=== PATIENT | female | born 1965 | race Two or more races ===

== ENCOUNTER → 2016-05-06 | Outpatient (CLI) | payer OTHER ==
[2016-05-06 08:28] LABS: Basophils # (auto) 0 uL; Basophils % (auto) 0.8 % (0.0-2.0); Eosinophils # (auto) 0.1 uL; Eosinophils % (auto) 2.7 % (0.0-7.0); Hematocrit 37.2 % (36.0-46.0); Hemoglobin 12.7 g/dL (12.2-16.2); Lymphocytes # (auto) 1.5 uL; Mean Corpuscular Hemoglobin 31.2 pg (28.0-32.0); Mean Corpuscular Hgb Conc. 34.1 g/dL (32.0-36.0); Mean Corpuscular Volume 91.7 fL (80.0-100.0); Mean Platelet Volume 8.5 fL (7.4-10.4); Monocytes # (auto) 0.6 uL; Monocytes % (auto) 10.7 % (0.0-12.0); Neutrophils # (auto) 3.1 uL; Neutrophils % (auto) 57.8 % (37.0-80.0); Platelet Count (auto) 294 10^3/uL (140-450); Red Cell Distribution Width 13.1 % (11.6-16.0); White Blood Cell 5.3 10^3/uL (4.4-10.8)
[2016-05-06 08:53] LABS: Albumin 3.9 g/dL (3.4-5.0); BUN/Creatinine Ratio 29.7; Bilirubin, Total 0.4 mg/dL (0.2-1.0); Potassium 3.9 mmol/L (3.5-5.1); Total Protein 7.5 g/dL (6.4-8.2)
== END | disposition home or self-care (01) ==
LOC: LAB 07:55
DX: M06.9 Rheumatoid arthritis, unspecified (principal); M25.50 Pain in unspecified joint; D64.9 Anemia, unspecified; I10 Essential (primary) hypertension
CPT/HCPCS: 36415; 80053; 85025; 85652; 86141

== ENCOUNTER → 2016-10-01 | Outpatient (CLI) | payer OTHER ==
[2016-10-01 09:09] LABS: Basophils # (auto) 0 uL; Basophils % (auto) 0.5 % (0.0-2.0); CONDITION Y; Eosinophils # (auto) 0 uL; Eosinophils % (auto) 0.3 % (0.0-7.0); Hematocrit 39.9 % (36.0-46.0); Lymphocytes % (auto) 24.9 % (10.0-50.0); Mean Corpuscular Hgb Conc. 35.2 g/dL (32.0-36.0); Mean Corpuscular Volume 91.1 fL (80.0-100.0); Mean Platelet Volume 7.8 fL (7.4-10.4); Monocytes # (auto) 0.5 uL; Monocytes % (auto) 12.9 % (0.0-12.0); Neutrophils # (auto) 2.4 uL; Neutrophils % (auto) 61.4 % (37.0-80.0); Platelet Count (auto) 286 10^3/uL (140-450); Red Cell Distribution Width 12.8 % (11.6-16.0); White Blood Cell 3.9 10^3/uL (4.4-10.8)
[2016-10-01 15:59] LABS: Albumin 4.2 g/dL (3.4-5.0); BUN/Creatinine Ratio 17.2; Bilirubin, Total 0.4 mg/dL (0.2-1.0); Calcium 9.2 mg/dL (8.5-10.1); Potassium 3.9 mmol/L (3.5-5.1); Total Protein 8.3 g/dL (6.4-8.2)
== END | disposition home or self-care (01) ==
LOC: LAB 08:53
DX: M06.9 Rheumatoid arthritis, unspecified (principal); M25.50 Pain in unspecified joint; D64.9 Anemia, unspecified; I10 Essential (primary) hypertension
CPT/HCPCS: 36415; 80053; 85025; 85652; 86141

== ENCOUNTER → 2016-10-09 | Outpatient (CLI) | payer OTHER | END | disposition home or self-care (01) | LOC: LAB 09:30 | DX: M32.10 Systemic lupus erythematosus, organ or system involvement unspecified (principal); M25.50 Pain in unspecified joint | CPT/HCPCS: 84155; 84165; 86160; 86225; 86235 ==

== ENCOUNTER → 2016-12-16 | Outpatient (CLI) | payer OTHER | END | disposition home or self-care (01) | LOC: LAB 15:16 | PROVIDERS: ATTEND Urology | DX: N39.0 Urinary tract infection, site not specified (principal) | CPT/HCPCS: 87086 ==

== ENCOUNTER → 2017-06-16 | Outpatient (CLI) | payer OTHER ==
[2017-06-16 09:39] LABS: Basophils # (auto) 0.1 uL; Basophils % (auto) 1.2 % (0.0-2.0); Eosinophils # (auto) 0.1 uL; Eosinophils % (auto) 2.3 % (0.0-7.0); Hematocrit 38.9 % (36.0-46.0); Hemoglobin 13.4 g/dL (12.2-16.2); Lymphocytes # (auto) 1.6 uL; Lymphocytes % (auto) 32.6 % (10.0-50.0); Mean Corpuscular Hemoglobin 31.8 pg (28.0-32.0); Mean Corpuscular Hgb Conc. 34.5 g/dL (32.0-36.0); Mean Corpuscular Volume 92.3 fL (80.0-100.0); Monocytes # (auto) 0.3 uL; Monocytes % (auto) 6.7 % (0.0-12.0); Neutrophils # (auto) 2.8 uL; Neutrophils % (auto) 57.2 % (37.0-80.0); Nucleated Red Blood Cells % 0.1 %; Platelet Count (auto) 297 10^3/uL (140-450); Red Blood Cells 4.21 10^6/uL (4.0-5.20); Red Cell Distribution Width 12.6 % (11.8-14.3); White Blood Cell 4.9 10^3/uL (4.4-10.8)
[2017-06-16 09:46] LABS: Urine Bacteria FEW /hpf (None Seen); Urine Blood TRACE /uL (Negative); Urine Mucus FEW (None Seen); Urine Specific Gravity 1.023 (1.001-1.035); Urine WBC 15 /hpf (0 - 5)
[2017-06-16 10:41] LABS: BUN/Creatinine Ratio 18.9; Bilirubin, Total 0.4 mg/dL (0.2-1.0); Potassium 3.8 mmol/L (3.5-5.1); Total Protein 7.7 g/dL (6.4-8.2)
== END | disposition home or self-care (01) ==
LOC: LAB 09:15
PROVIDERS: ATTEND Family Medicine
DX: E55.9 Vitamin D deficiency, unspecified (principal); M79.7 Fibromyalgia; E78.4 Other hyperlipidemia; I10 Essential (primary) hypertension; M06.9 Rheumatoid arthritis, unspecified; R73.09 Other abnormal glucose; Z87.39 Personal history of other diseases of the musculoskeletal system and connective tissue
CPT/HCPCS: 36415; 80053; 80061; 81001; 82607; 83036; 84443; 85025

== ENCOUNTER 2017-08-03 18:25 | Emergency (ER) | payer OTHER ==
[~2017-08-03] VITALS: Ht 162.6 cm; Wt 81.2 kg
[2017-08-03] MEDS ORDERED: SODIUM CHLORIDE 0.9% 500 ML IVB ONE (19:12)
[2017-08-03] MEDS ORDERED: ONDANSETRON HCL 4 MG/2 ML VIAL IV ONE (19:15)
[2017-08-03] MEDS ORDERED: MORPHINE SULFATE 8mg/ml INJ SDV IV PRN (19:15)
[2017-08-03 19:39] LABS: Basophils # (auto) 0.1 uL; Eosinophils # (auto) 0.2 uL; Eosinophils % (auto) 2.6 % (0.0-7.0); Hematocrit 39.1 % (36.0-46.0); Hemoglobin 13.5 g/dL (12.2-16.2); Lymphocytes # (auto) 1.9 uL; Lymphocytes % (auto) 27.6 % (10.0-50.0); Mean Corpuscular Hemoglobin 32.3 pg (28.0-32.0); Mean Corpuscular Hgb Conc. 34.6 g/dL (32.0-36.0); Mean Corpuscular Volume 93.3 fL (80.0-100.0); Monocytes # (auto) 0.4 uL; Monocytes % (auto) 6.1 % (0.0-12.0); Neutrophils # (auto) 4.2 uL; Neutrophils % (auto) 62.7 % (37.0-80.0); Nucleated Red Blood Cells % 0.1 %; Platelet Count (auto) 327 10^3/uL (140-450); Red Blood Cells 4.19 10^6/uL (4.0-5.20); Red Cell Distribution Width 13.1 % (11.8-14.3); White Blood Cell 6.8 10^3/uL (4.4-10.8)
[2017-08-03 19:51] LABS: INR 0.92 (0.9-1.15); Partial Thromboplastin Time 26.3 sec (23.78-33.04); Prothrombin Time 9.9 sec (9.27-12.13)
[2017-08-03 20:04] LABS: Alanine Aminotransferase 55 U/L (13-56); Albumin 4.1 g/dL (3.4-5.0); Alkaline Phosphatase 127 U/L (45-117); Amylase 84 U/L (25-115); Anion Gap 8 (5-15); Aspartate Aminotransferase 25 U/L (15-37); BUN/Creatinine Ratio 14.9; Bilirubin, Total 0.3 mg/dL (0.2-1.0); Blood Urea Nitrogen 13 mg/dL (7-18); Calcium 8.9 mg/dL (8.5-10.1); Carbon Dioxide 26 mmol/L (21-32); Chloride 106 mmol/L (98-107); GFR African American 87 mL/min; GFR Non-African American 72 mL/min; Glucose 90 mg/dL (74-106); Lipase 141 U/L (73-393); Potassium 3.3 mmol/L (3.5-5.1); Sodium 140 mmol/L (136-145)
[2017-08-03 21:39] LABS: Urine Bacteria NONE SEEN /hpf (None Seen); Urine Blood Negative /uL (Negative); Urine Mucus FEW (None Seen); Urine Specific Gravity 1.015 (1.001-1.035); Urine WBC 3 /hpf (0 - 5)
[2017-08-03 22:31] VITALS: BP 111/64
== END 2017-08-03 23:30 | disposition home or self-care (01) ==
LOC: ER 18:25
DX: R10.11 Right upper quadrant pain (principal); M32.9 Systemic lupus erythematosus, unspecified; M79.7 Fibromyalgia; Z88.0 Allergy status to penicillin; Z90.49 Acquired absence of other specified parts of digestive tract
CPT/HCPCS: 36415; 71045; 76705; 80053; 81001; 82150; 83690; 84484; 85025; 85610; 85730; 93005; 94761; 96374; 96375; 99285; J2270; J2405; J7030

== ENCOUNTER → 2018-07-08 | Outpatient (CLI) | payer OTHER ==
[2018-07-08 08:39] LABS: Urine Bacteria NONE SEEN /hpf (None Seen); Urine Blood TRACE /uL (Negative); Urine Mucus FEW (None Seen); Urine Specific Gravity 1.017 (1.001-1.035); Urine WBC 24 /hpf (0 - 5)
[2018-07-08 08:43] LABS: Basophils # (auto) 0.1 uL; Basophils % (auto) 1.7 % (0.0-2.0); Eosinophils # (auto) 0.1 uL; Eosinophils % (auto) 2.5 % (0.0-7.0); Hematocrit 38.3 % (36.0-46.0); Hemoglobin 13.3 g/dL (12.2-16.2); Lymphocytes # (auto) 1.4 uL; Lymphocytes % (auto) 29.1 % (10.0-50.0); Mean Corpuscular Hemoglobin 32.4 pg (28.0-32.0); Mean Corpuscular Hgb Conc. 34.7 g/dL (32.0-36.0); Mean Corpuscular Volume 93.2 fL (80.0-100.0); Monocytes # (auto) 0.3 uL; Monocytes % (auto) 6.6 % (0.0-12.0); Neutrophils # (auto) 2.9 uL; Neutrophils % (auto) 60.1 % (37.0-80.0); Nucleated Red Blood Cells % 0.1 %; Platelet Count (auto) 272 10^3/uL (140-450); Red Blood Cells 4.11 10^6/uL (4.0-5.20); Red Cell Distribution Width 12.8 % (11.8-14.3); White Blood Cell 4.9 10^3/uL (4.4-10.8)
[2018-07-08 09:01] LABS: Potassium 3.6 mmol/L (3.5-5.1)
[2018-07-08 09:09] LABS: Albumin 3.8 g/dL (3.4-5.0); BUN/Creatinine Ratio 17.1; Bilirubin, Total 0.4 mg/dL (0.2-1.0); Calcium 8.6 mg/dL (8.5-10.1); Total Protein 7.3 g/dL (6.4-8.2)
[2018-07-08 09:14] LABS: Free T4 (Free Thyroxine) 0.85 ng/dL (0.89-1.76)
== END | disposition home or self-care (01) ==
LOC: LAB 07:58
PROVIDERS: ATTEND Internal Medicine
DX: M32.9 Systemic lupus erythematosus, unspecified (principal); M54.16 Radiculopathy, lumbar region
CPT/HCPCS: 36415; 80053; 80061; 81001; 82550; 82607; 84439; 84443; 85025; 85652; 86225; 86235; 86431

== ENCOUNTER → 2018-11-30 | Outpatient (CLI) | payer OTHER ==
[2018-11-30 11:44] LABS: Basophils # (auto) 0.1 uL; Basophils % (auto) 1.2 % (0.0-2.0); Eosinophils # (auto) 0.1 uL; Eosinophils % (auto) 1.9 % (0.0-7.0); Hematocrit 40.4 % (36.0-46.0); Hemoglobin 14.1 g/dL (12.2-16.2); Lymphocytes # (auto) 1.4 uL; Lymphocytes % (auto) 31.7 % (10.0-50.0); Mean Corpuscular Hemoglobin 32.4 pg (28.0-32.0); Mean Corpuscular Hgb Conc. 34.8 g/dL (32.0-36.0); Mean Corpuscular Volume 93.1 fL (80.0-100.0); Monocytes # (auto) 0.4 uL; Monocytes % (auto) 8.1 % (0.0-12.0); Neutrophils # (auto) 2.5 uL; Neutrophils % (auto) 57.1 % (37.0-80.0); Platelet Count (auto) 296 10^3/uL (140-450); Red Blood Cells 4.34 10^6/uL (4.0-5.20); White Blood Cell 4.3 10^3/uL (4.4-10.8)
[2018-11-30 11:50] LABS: Potassium 3.9 mmol/L (3.5-5.1)
[2018-11-30 12:01] LABS: BUN/Creatinine Ratio 14.1; Bilirubin, Total 0.4 mg/dL (0.2-1.0); Calcium 9.2 mg/dL (8.5-10.1); Total Protein 8.1 g/dL (6.4-8.2)
== END | disposition home or self-care (01) ==
LOC: LAB 10:15
PROVIDERS: ATTEND Internal Medicine
DX: M32.9 Systemic lupus erythematosus, unspecified (principal); R53.83 Other fatigue
CPT/HCPCS: 36415; 80053; 84439; 84443; 85025; 85652

== ENCOUNTER → 2019-04-05 | Outpatient (CLI) | payer OTHER ==
[2019-04-05 09:58] LABS: Basophils # (auto) 0.1 uL; Basophils % (auto) 1.2 % (0.0-2.0); Eosinophils # (auto) 0.1 uL; Eosinophils % (auto) 2.5 % (0.0-7.0); Hematocrit 38.9 % (36.0-46.0); Hemoglobin 13.5 g/dL (12.2-16.2); Lymphocytes # (auto) 1.3 uL; Lymphocytes % (auto) 27.2 % (10.0-50.0); Mean Corpuscular Hgb Conc. 34.7 g/dL (32.0-36.0); Mean Corpuscular Volume 92.1 fL (80.0-100.0); Monocytes # (auto) 0.3 uL; Monocytes % (auto) 5.7 % (0.0-12.0); Neutrophils % (auto) 63.4 % (37.0-80.0); Nucleated Red Blood Cells % 0.1 %; Platelet Count (auto) 278 10^3/uL (140-450); Red Blood Cells 4.22 10^6/uL (4.0-5.20); Red Cell Distribution Width 12.8 % (11.8-14.3); White Blood Cell 4.8 10^3/uL (4.4-10.8)
[2019-04-05 10:28] LABS: Calcium 9.4 mg/dL (8.5-10.1)
[2019-04-05 10:33] LABS: BUN/Creatinine Ratio 27.2; Bilirubin, Total 0.4 mg/dL (0.2-1.0); Total Protein 7.9 g/dL (6.4-8.2)
== END | disposition home or self-care (01) ==
LOC: LAB 09:33
PROVIDERS: ATTEND Internal Medicine
DX: M32.9 Systemic lupus erythematosus, unspecified (principal); J06.9 Acute upper respiratory infection, unspecified
CPT/HCPCS: 36415; 80053; 85025; 85652

== ENCOUNTER 2022-03-23 11:06 | Emergency (ER) | payer OTHER ==
[~2022-03-23] VITALS: Ht 167.6 cm; Wt 77.6 kg
[2022-03-23 11:41] LABS: Basophils # (auto) 0.1 10 ^3/uL (0-0.2); Basophils % (auto) 0.8 % (0.0-2.0); Eosinophils # (auto) 0 10 ^3/uL (0-0.8); Eosinophils % (auto) 0.5 % (0.0-7.0); Hematocrit 36.5 % (36.0-46.0); Hemoglobin 12.6 g/dL (12.2-16.2); Lymphocytes # (auto) 1.3 10 ^3/uL (0.4-5.4); Lymphocytes % (auto) 18.2 % (10.0-50.0); Mean Corpuscular Hemoglobin 32.1 pg (28.0-32.0); Mean Corpuscular Hgb Conc. 34.4 g/dL (32.0-36.0); Mean Corpuscular Volume 93.4 fL (80.0-100.0); Monocytes # (auto) 0.6 10 ^3/uL (0-1.3); Monocytes % (auto) 7.6 % (0.0-12.0); Neutrophils # (auto) 5.3 10 ^3/uL (1.6-8.6); Neutrophils % (auto) 72.9 % (37.0-80.0); Nucleated Red Blood Cells % 0.1 %; Red Blood Cells 3.91 10^6/uL (4.0-5.20); Red Cell Distribution Width 12.7 % (11.8-14.3); White Blood Cell 7.3 10^3/uL (4.4-10.8)
[2022-03-23] MEDS ORDERED: KETOROLAC TROMETH 60MG/2ML VIAL IM ONE (11:45)
[2022-03-23 12:05] LABS: Urine Bacteria NONE SEEN /hpf (None Seen); Urine Blood Negative /uL (Negative); Urine Mucus FEW (None Seen); Urine Specific Gravity 1.021 (1.001-1.035); Urine WBC 4 /hpf (0 - 5)
[2022-03-23 12:41] LABS: Albumin 3.8 g/dL (3.4-5.0); BUN/Creatinine Ratio 15.1; Potassium 3.7 mmol/L (3.5-5.1)
[2022-03-23 12:44] LABS: Bilirubin, Total 0.6 mg/dL (0.2-1.0); Total Protein 7.9 g/dL (6.4-8.2)
[2022-03-23] MEDS ORDERED: METR500T PO (13:55)
[2022-03-23] MEDS ORDERED: LEVO500T31 PO (13:55)
[2022-03-23 14:28] VITALS: BP 122/68
== END 2022-03-23 14:30 | disposition home or self-care (01) ==
LOC: ER 11:06
DX: K57.32 Diverticulitis of large intestine without perforation or abscess without bleeding (principal); Z88.0 Allergy status to penicillin; Z90.49 Acquired absence of other specified parts of digestive tract; Z90.89 Acquired absence of other organs; Z98.51 Tubal ligation status
CPT/HCPCS: 36415; 74176; 76830; 76856; 80053; 81001; 83690; 85025; 96372; 99284; J1885

== ENCOUNTER 2024-11-11 14:24 | Emergency (ER) | payer OTHER ==
[~2024-11-11] VITALS: Ht 167.6 cm; Wt 81.5 kg
[~2024-11-11 14:24] MED LIST: LEVO500T31 PO; METR500T PO
--- NOTE | 2024-11-11 15:06 | ED.PDOC ---
GI ASSESSMENT HPI Comments 59-year-old female presents with a chief complaint of abdominal pain x onset last night with associated body aches, nausea, fever, and diarrhea. Patient states that her abdomen pain is localized diffusely, nonradiating, nonexertional, and describes as cramping sensation. Patient states that this pain feels similar to her previous flare-up of Diverticulosis. Patient mentions that her diarrhea is watery in consistency. PMHx: HLD, Lupus, Fibromyalgia PSHx: , Tonsillectomy, Cholecystectomy, Tubal Ligation, DNC GALLO: HPI: Poor Historian. REVIEW OF SYSTEMS: CONSTITUTIONAL: Denies acute: fever, diaphoresis, chills, generalized weakness. HEAD: Denies acute: headache, photophobia Eyes: Denies acute: Double vision, vision loss, eye pain, eye discharge. EARS: Denies acute: tinnitus, hearing loss, ear discharge, ear pain, THROAT: Denies acute: sore throat, swelling, difficulty swallowing , pain with swallowing, change in voice. NECK: Denies acute: neck pain, neck swelling, stiff neck. HEART: Denies acute : chest pain, palpitations, LUNGS: Denies acute: SOB, wheezing, cough, hemoptysis ABDOMEN: Denies acute: Nausea, Vomiting, melena , hematemesis, hematochezia SKIN: Denies acute: rash, redness, lesions, itchiness. EXTREMITIES: Denies acute: calf pain, numbness, tingling, weakness, denies pain in extremity. Denies acute: Low back pain. Neuro: Denies acute: focal neurological deficit, motor or sensory focal neurological deficit, tremors, seizure like activity, confusion, dizziness, change in mental status, loss of bowel or bladder function, cauda equina like symptoms. : Denies acute: dysuria, hematuria, flank pain, increase in urinary frequency. PSYCH: Denies acute: hallucination, suicidal ideation, homicidal ideation. FEMALE: Denies acute: abnormal vaginal bleeding, foul odor, unusual discharge. PHYSICAL EXAM: General: ----no----acute distress, awake and alert. Head: normocephalic, atraumatic. Neck: supple, trachea is midline, no swelling. Throat: Normal phonation. Eyes:, no erythema, no purulent discharge, no proptosis, no icterus. Heart: regular rate, regular rhythm, no significant murmur appreciated. Lungs: no apparent respiratory distress, Able to speak in full sentences. No wheezing, no rhonchi, no crackles. No stridors Clear to auscultation bilaterally. Abdomen: Nonspecific generalized lower abdomen tender to palpation, non distended, soft, no guarding, no rebound, + bowel sounds. Neuro: Awake, Alert, oriented to name, self, situation, follows commands GCS=15. Speech is normal. Skin: no petechia, no purpura, no cyanosis, non-pale, not jaundice. Lower extremities: --no - Pitting edema no deformity, no focal swelling, no calf TTP. Makes eye contact. moves all four extremities. Face: no apparent facial droop. Ambulating in the ED independently. ED COURSE: DISCLAIMER: This medical document was created using an electronic medical record system with voice recognition software and computerized dictation system. Although this document has been carefully reviewed, there might still be some phonetic and typographical errors. Occasional wrong-word or "sound-alike" substitutions may have occurred due to the inherent limitations of voice recognition software. These areas are purely typographical due to imperfections of the software programs and do not reflect any compromise in the patient's medical care. Please read the chart carefully and recognize, using context, where these substitutions have occurred. Chief Complaint: Abdominal Pain Time Seen by MD: 14:47 Reviewed Notes: Medications, Allergies Allergies: Coded Allergies: Penicillins (Verified Allergy, Unknown, 08/03/17) Home Meds Active Scripts Metronidazole (Flagyl) 500 Mg Tab, 1 TAB PO TID for 7 Days, #21 TAB Prov:NISHA MORATAYA DO 11/11/24 Ciprofloxacin Hcl (Cipro) 500 Mg Tab, 500 MG PO BID for 7 Days, #14 TAB Prov:NISHA MORATAYA DO 11/11/24 Metronidazole (Flagyl) 500 Mg Tab, 500 MG PO TID for 7 Days, #21 TAB Prov:LORELEI WHITT DO 03/23/22 Levofloxacin (Levaquin) 500 Mg Tab, 500 MG PO DAILY for 7 Days, #7 TAB Prov:LORELEI WHITT DO 03/23/22 Information Source: Patient Mode of Arrival: Ambulatory Past Medical History PAST MEDICAL HISTORY: High Lipids Past Medical History (Other): LUPUS, FIBROMYALGIA Surgical History: Cholecystectomy, , Tonsillectomy, Tubal Ligation BRICKLAYER'S ASSISTANT History: No Pertinent BRICKLAYER'S ASSISTANT History Family History Family History: Reviewed,noncontributory to illness Social History Smoker: Non-Smoker Alcohol: Denies ETOH Use Drugs: Denies Drug Use Lives In: Home Was a procedure done? Was a procedure done?: No GI differential Dx Differential Diagnosis: Other (DDX include Diverticulitis, colitis, gastroenteritis, acute abdomen, SBO, enteritis, constipation, volvulus, appendicitis, Gallbladder disease, choledocolithiasis, ascending cholangitis, pancreatitis, intraAbdominal mass/neoplasm, hepatitis, UTI, pylonephritis, kidney stone, aneurysm, dissection, Inflammatory bowel disease, gastroparesis, ischemic bowel, ovarian torsion, ovarian cyst/mass, tubo-ovarian abscess, PID, STD.) X-Ray, Labs, Meds, VS Vital Signs Date Time Temp Pulse Resp B/P (MAP) Pulse Ox O2 Delivery O2 Flow Rate FiO2 11/11/24 16:34 98.2 81 18 151/88 (109) 96 98.2 11/11/24 16:34 81 11/11/24 14:25 97.6 87 18 128/79 97 97.6 Lab Test 11/11/24 15:13 11/11/24 14:55 Range/Units White Blood Count 4.9 4.4-10.8 10^3/uL Red Blood Count 4.00 4.0-5.20 10^6/uL Hemoglobin 13.0 12.2-16.2 g/dL Hematocrit 37.9 36.0-46.0 % Mean Corpuscular Volume 94.8 80.0-100.0 fL Mean Corpuscular Hemoglobin 32.6 H 28.0-32.0 pg Mean Corpuscular Hemoglobin Concent 34.3 32.0-36.0 g/dL Red Cell Distribution Width 12.9 11.8-14.3 % Platelet Count 289 140-450 10^3/uL Mean Platelet Volume 8.8 6.9-10.8 fL Neutrophils (%) (Auto) 59.1 37.0-80.0 % Lymphocytes (%) (Auto) 30.5 10.0-50.0 % Monocytes (%) (Auto) 8.2 0.0-12.0 % Eosinophils (%) (Auto) 1.2 0.0-7.0 % Basophils (%) (Auto) 1.0 0.0-2.0 % Neutrophils # (Auto) 2.9 1.6-8.6 10 ^3/uL Lymphocytes # (Auto) 1.5 0.4-5.4 10 ^3/uL Monocytes # (Auto) 0.4 0-1.3 10 ^3/uL Eosinophils # (Auto) 0.1 0-0.8 10 ^3/uL Basophils # (Auto) 0 0-0.2 10 ^3/uL Nucleated Red Blood Cells 0.2 % Sodium Level 139 136-145 mmol/L Potassium Level 4.0 3.5-5.1 mmol/L Chloride Level 105 98-107 mmol/L Carbon Dioxide Level 25 20-31 mmol/L Anion Gap 9 5-15 Blood Urea Nitrogen 11 9-23 mg/dL Creatinine 0.85 0.550-1.02 mg/dL Glomerular Filtration Rate Calc 78 >90 mL/min BUN/Creatinine Ratio 12.9 10.0-20.0 Serum Glucose 124 H 74-106 mg/dL Lactic Acid Level 1.7 0.4-2.0 mmol/L Calcium Level 9.2 8.7-10.4 mg/dL Total Bilirubin 0.4 0.2-1.0 mg/dL Aspartate Amino Transferase (AST) 42 H 13-40 U/L Alanine Aminotransferase (ALT) 75 H 7-40 U/L Alkaline Phosphatase 106 46-116 U/L Troponin I High Sensitivity < 3 L </=34 ng/L Total Protein 7.5 5.7-8.2 g/dL Albumin 4.4 3.2-4.8 g/dL Lipase 267 H 12-53 U/L Urine Color Yellow Yellow Urine Clarity Clear Clear Urine pH 5.0 5.0-9.0 Urine Specific [place] 1.027 1.001-1.035 Urine Protein Negative Negative Urine Ketones Negative Negative Urine Blood Negative Negative /uL Urine Nitrite Negative Negative Urine Bilirubin Negative Negative Urine Urobilinogen Normal Negative mg/dL Urine Leukocyte Esterase 1+ Negative /uL Urine RBC 2 0 - 4 /hpf Urine Microscopic WBC 4 0-5 /HPF Urine Squamous Epithelial Cells Few <5 /hpf Urine Bacteria None seen None Seen /hpf Urine Hyaline Casts Few 0 - 2 /lpf Urine Mucus Few None Seen Urine Glucose Normal Normal mg/dL Current Medications Medications (Trade) Dose Ordered Sig/Shweta Route Start Time Stop Time Status Last Admin Ciprofloxacin (Cipro Tablet) 500 mg ONCE ONCE PO 11/11/24 17:30 11/11/24 17:31 DC 11/11/24 17:58 Metronidazole (Flagyl Tablet) 500 mg ONCE ONCE PO 11/11/24 17:30 11/11/24 17:31 DC 11/11/24 17:58 [place] [id number] Ph: [phone] DIAGNOSTIC IMAGING Diagnostic Imaging Report : [id number] Signed PATIENT: QUENTIN GALLO ACCT: [id number] UNIT: [id number] : 1965 LOC: ER ROOM / BED: / AGE / SEX: 59 / F ADM STATUS: REG ER SERVICE 1452 ORDERING PHYSICIAN: NISHA MORATAYA DO PROCEDURE(s): ABPLIV - CT AB PEL WITH IV CON ONLY REASON: abd pain, h/o diverticulosis ORDER NUMBER(s): [id number], ACCESSION NUMBER(s): [id number] EXAM: CT CT AB PEL WITH IV CON ONLY HISTORY: abd pain, h/o diverticulosis TECHNIQUE: Volumetric multidetector CT images of the abdomen and pelvis were obtained after the administration of intravenous contrast. All CT scans at this facility use dose modulation, iterative reconstruction, and/or weight based dosing when appropriate to reduce radiation dose to as low as reasonably achievable. COMPARISON: PELVIC on DOS: 03/23/22 FINDINGS: [LOWER CHEST]: The partially visualized lung bases are clear without a pleural effusion. [LIVER]: Normal hepatic size without suspicious focal lesion. [GALLBLADDER AND BILIARY TREE]: Surgically absent. [SPLEEN]: Unremarkable. [PANCREAS]: Unremarkable. [ADRENAL GLANDS]: Unremarkable [KIDNEYS]: No hydronephrosis. No nephroureterolithiasis. Benign appearing renal cysts, compatible with Bosniak type I cyst. No imaging follow-up required. [BLADDER]: Decompressed [REPRODUCTIVE ORGANS]: Unremarkable. [BOWEL/MESENTERY]: Stomach is normal. Inflammatory stranding of the distal sigmoid colon to rectosigmoid junction. No adjacent abnormal drainable fluid collection imaging findings may be compatible with colitis/diverticulitis minimal burden of sigmoid diverticulosis. [ASCITES]: Absent [LYMPHADENOPATHY]: No pathologically enlarged lymph nodes by CT size criteria [VASCULATURE]: No aneurysmal dilatation. [ABDOMINAL WALL]: Unremarkable. [MUSCULOSKELETAL]: No acute fracture or aggressive focal osseous lesion. Multifocal degenerative change of the visualized spine. IMPRESSION: 1. Inflammatory stranding of the distal sigmoid colon to rectosigmoid junction. No adjacent abnormal drainable fluid collection imaging findings may be compatible with colitis/diverticulitis minimal burden of sigmoid diverticulosis. ATED BY: SHANKAR LUNA MD DICTATED DATE/TIME: 11/11/241715 SIGNED BY: SHANKAR LUNA MD SIGNED DATE/TIME: 11/11/241715 CC: Time of 1ST Reevaluation: 15:17 Reevaluation 1ST: Unchanged Patient Education/Counseling: Diagnosis, Treatment Family Education/Counseling: Other Comments MDM: patient presented with the above HPI.--abdominal pain and diarrhea----workup was initiated. patient was found with the above mentioned diagnosis. the following medications were ordered: please refer to order lists of meds and tests obtained by myself Dr. Morataya. Patient ED course and VS have been stabilized. Patient has been reassessed in the ED and remained in a stable condition. Pertinent incidental findings were discussed with the patient and/or family. Patient/family voices understanding and is agreeable with plan. Patient has been observed in the ED adequate length of time to insure improvement/stability. Escalation of care considered: Consideration of escalation to observation or admission Patient was DISCHARGED home in a stable condition. All the reports of any imaging studies that were ordered by myself were reviewed by myself. Departure 1 Departure Time of Disposition: 17:21 Impression: Primary Impression: Diverticulitis of intestine Disposition: HOME / SELF CARE / HOMELESS Condition: Stable Additional Instructions: Additional instructions: Please read all instructions provided in this packet carefully. You MUST follow-up with your primary care/family doctor in 1 to 2 days. If you are unable to see your primary care/family doctor, please return to our emergency room for re-assessment and re-evaluation in 1 to 2 days. Return to the emergency room here in our facility or to the nearest ER [facility] if your symptoms change or worsen. CONSULTATIONS: you MUST Follow-up for consultation as soon as possible with: gastroenterology in 1-2 days. Please call for appointment. You MUST call the consultants office yourself to make an appointment. You may need to arrange that through your insurance and/or your primary/family doctor. If you are unable to see the energy consultant in 1 to 2 days, you must return to our emergency room (or any other ER of your choice) for re-assessment and re- evaluation. Adequate fluid hydration. Although you have been discharged from the Emergency Department, this does not mean that you have a "clean bill of health". No definitive diagnosis for your symptoms has been made today. It is possible that you are in the process of developing a serious illness. This is why you must return to the ED without fail if any new or worsening symptoms develop. Below is a copy of your radiological report for follow up: [place] [id number] Ph: [phone] DIAGNOSTIC IMAGING Diagnostic Imaging Report : [id number] Signed PATIENT: QUENTIN GALLO ACCT: [id number] UNIT: [id number] : 1965 LOC: ER ROOM / BED: / AGE / SEX: 59 / F ADM STATUS: REG ER SERVICE 1452 ORDERING PHYSICIAN: NISHA MORATAYA DO PROCEDURE(s): ABPLIV - CT AB PEL WITH IV CON ONLY REASON: abd pain, h/o diverticulosis ORDER NUMBER(s): [id number], ACCESSION NUMBER(s): [id number] EXAM: CT CT AB PEL WITH IV CON ONLY HISTORY: abd pain, h/o diverticulosis TECHNIQUE: Volumetric multidetector CT images of the abdomen and pelvis were obtained after the administration of intravenous contrast. All CT scans at this facility use dose modulation, iterative reconstruction, and/or weight based dosing when appropriate to reduce radiation dose to as low as reasonably ach ievable. COMPARISON: PELVIC on DOS: 03/23/22 FINDINGS: [LOWER CHEST]: The partially visualized lung bases are clear without a pleural effusion. [LIVER]: Normal hepatic size without suspicious focal lesion. [GALLBLADDER AND BILIARY TREE]: Surgically absent. [SPLEEN]: Unremarkable. [PANCREAS]: Unremarkable. [ADRENAL GLANDS]: Unremarkable [KIDNEYS]: No hydronephrosis. No nephroureterolithiasis. Benign appearing renal cysts, compatible with Bosniak type I cyst. No imaging follow-up required. [BLADDER]: Decompressed [REPRODUCTIVE ORGANS]: Unremarkable. [BOWEL/MESENTERY]: Stomach is normal. Inflammatory stranding of the distal sigmoid colon to rectosigmoid junction. No adjacent abnormal drainable fluid collection imaging findings may be compatible with colitis/diverticulitis minimal burden of sigmoid diverticulosis. [ASCITES]: Absent [LYMPHADENOPATHY]: No pathologically enlarged lymph nodes by CT size criteria [VASCULATURE]: No aneurysmal dilatation. [ABDOMINAL WALL]: Unremarkable. [MUSCULOSKELETAL]: No acute fracture or aggressive focal osseous lesion. Multifocal degenerative change of the visualized spine. IMPRESSION: 1. Inflammatory stranding of the distal sigmoid colon to rectosigmoid junction. No adjacent abnormal drainable fluid collection imaging findings may be compatible with colitis/diverticulitis minimal burden of sigmoid diverticulosis. ATED BY: SHANKAR LUNA MD DICTATED DATE/TIME: 11/11/241715 SIGNED BY: SHANKAR LUNA MD SIGNED DATE/TIME: 11/11/241715 CC: e-Prescriptions Metronidazole (Flagyl) 500 Mg Tab 1 TAB PO TID for 7 Days, #21 TAB Prov: NISHA MORATAYA DO 11/11/24 Ciprofloxacin Hcl (Cipro) 500 Mg Tab 500 MG PO BID for 7 Days, #14 TAB Prov: NISHA MORATAYA DO 11/11/24 Discharged With: Self Critical Care Note Critical Care Time?: No I personally scribed for NISHA MORATAYA DO ([email or web address]) on 11/11/24 at 15:06. Electronically submitted by Jorge Hampton ([email or web address]). NISHA MORATAYA DO Nov 11, 2024 15:06
[2024-11-11 15:18] LABS: Urine Protein, UAD Negative (Negative)
[2024-11-11 15:34] LABS: Hematocrit 37.9 % (36.0-46.0); Hemoglobin 13.0 g/dL (12.2-16.2); Mean Corpuscular Hemoglobin 32.6 pg (28.0-32.0); Mean Corpuscular Volume 94.8 fL (80.0-100.0); Nucleated Red Blood Cells % 0.2 %
[2024-11-11 15:48] LABS: Albumin 4.4 g/dL (3.2-4.8); Alkaline Phosphatase 106 U/L (46-116); Anion Gap 9 (5-15); BUN/Creatinine Ratio 12.9 (10.0-20.0); Bilirubin, Total 0.4 mg/dL (0.2-1.0); Blood Urea Nitrogen 11 mg/dL (9-23); Calcium 9.2 mg/dL (8.7-10.4); Carbon Dioxide 25 mmol/L (20-31); Chloride 105 mmol/L (98-107); Potassium 4.0 mmol/L (3.5-5.1); Sodium 139 mmol/L (136-145); Total Protein 7.5 g/dL (5.7-8.2)
[2024-11-11 16:04] LABS: Alanine Aminotransferase 75 U/L (7-40); Glucose 124 mg/dL (74-106); Lipase 267 U/L (12-53)
[2024-11-11 16:34] VITALS: BP 151/88; PULSE 81; RESP 18; TEMP 98.2; O2SAT 96
[2024-11-11] MEDS: IOHEXOL 300 MG/ML 100ML BOTTLE IJ ONE (16:42)
--- NOTE | 2024-11-11 17:18 | DVH ---
EXAM: CT CT AB PEL WITH IV CON ONLY HISTORY: abd pain, h/o diverticulosis TECHNIQUE: Volumetric multidetector CT images of the abdomen and pelvis were obtained after the admin istration of intravenous contrast. All CT scans at this facility use dose modulation, iterative recon struction, and/or weight based dosing when appropriate to reduce radiation dose to as low as reasonab ly achievable. COMPARISON: PELVIC on DOS: 03/23/22 FINDINGS: [LOWER CHEST]: The partially visualized lung bases are clear without a pleural effusion. [LIVER]: Normal hepatic size without suspicious focal lesion. [GALLBLADDER AND BILIARY TREE]: Surgically absent. [SPLEEN]: Unremarkable. [PANCREAS]: Unremarkable. [ADRENAL GLANDS]: Unremarkable [KIDNEYS]: No hydronephrosis. No nephroureterolithiasis. Benign appearing renal cysts, compatible wit h Bosniak type I cyst. No imaging follow-up required. [BLADDER]: Decompressed [REPRODUCTIVE ORGANS]: Unremarkable. [BOWEL/MESENTERY]: Stomach is normal. Inflammatory stranding of the distal sigmoid colon to rectosigm oid junction. No adjacent abnormal drainable fluid collection imaging findings may be compatible wit h colitis/diverticulitis minimal burden of sigmoid diverticulosis. [ASCITES]: Absent [LYMPHADENOPATHY]: No pathologically enlarged lymph nodes by CT size criteria [VASCULATURE]: No aneurysmal dilatation. [ABDOMINAL WALL]: Unremarkable. [MUSCULOSKELETAL]: No acute fracture or aggressive focal osseous lesion. Multifocal degenerative smiley ge of the visualized spine. IMPRESSION: 1. Inflammatory stranding of the distal sigmoid colon to rectosigmoid junction. No adjacent abnormal drainable fluid collection imaging findings may be compatible with colitis/diverticulitis minimal bu rden of sigmoid diverticulosis.
[2024-11-11] MEDS ORDERED: CIPR-173 PO (17:24)
[2024-11-11] MEDS ORDERED: METR-344 PO (17:24)
[2024-11-11] MEDS: CIPROFLOXACIN HCL 500 MG TAB PO ONE (17:58)
[2024-11-11] MEDS: metroNIDAZOLE 500 MG TAB PO ONE (17:58)
== END 2024-11-11 18:12 | disposition home or self-care (01) ==
LOC: ER 14:24
DX: K57.32 Diverticulitis of large intestine without perforation or abscess without bleeding (principal); Z90.49 Acquired absence of other specified parts of digestive tract; Z90.89 Acquired absence of other organs; Z98.51 Tubal ligation status; Z88.0 Allergy status to penicillin
CPT/HCPCS: 36415; 74177; 80053; 81001; 83605; 83690; 84484; 85025; 99285; Q9967